=== PATIENT | female | born 1955 ===

== ENCOUNTER → 2017-02-21 | Outpatient (CLI) | payer OTHER | END | disposition home or self-care (01) | LOC: C.PAPS 09:35 | PROVIDERS: ATTEND Physician Assistant | DX: Z12.4 Encounter for screening for malignant neoplasm of cervix (principal) ==

== ENCOUNTER → 2017-03-12 | Outpatient (CLI) | payer OTHER ==
--- NOTE | 2017-03-12 15:08 | MAMMOGRAPHY REPORT ---
BILATERAL DIGITAL SCREENING MAMMOGRAM TOMOSYNTHESIS WITH CAD: 03/12/2017 CLINICAL HISTORY: Routine screening. Patient has no complaints. TECHNIQUE: Breast tomosynthesis in addition to standard 2D mammography was performed. Current study was also evaluated with a Computer Aided Detection (CAD) system. COMPARISON: Comparison is made to exams dated: 08/19/2014 mammogram - [facility]. BREAST COMPOSITION: There are scattered areas of fibroglandular density in both breasts. FINDINGS: There is a 6 mm focal asymmetry versus mass in the 2:00 middle one third of the right gaur[address] st, for which additional targeted ultrasound and possible additional mammographic views are recommend ed, although this could represent a cyst. No other suspicious mass, architectural distortion or cluster of microcalcifications is seen bilatera lly. IMPRESSION: ACR BI-RADS CATEGORY 0: INCOMPLETE EVALUATION: NEED ADDITIONAL IMAGING EVALUATION The 6 mm focal asymmetry versus mass in the 2:00 right breast needs additional evaluation. The patient will be called to schedule an appointment. Approximately 10% of breast cancers are not detected with mammography. A negative mammographic report should not delay biopsy if a clinically suggestive mass is present. Melissa Moctezuma M.D. ay/:03/12/2017 11:48:40 Data Entry Processor: Namita KNIGHT(Petra)([place]), [facility] letter sent: Addl Imaging 0 BI-RADS Code: ACR BI-RADS Category 0: Incomplete Evaluation: Need Additional Imaging Evaluation
== END | disposition home or self-care (01) ==
LOC: C.MAMM 10:21
PROVIDERS: ATTEND Internal Medicine
DX: Z12.31 Encounter for screening mammogram for malignant neoplasm of breast (principal); N64.89 Other specified disorders of breast

== ENCOUNTER → 2017-03-19 | Outpatient (CLI) | payer OTHER ==
--- NOTE | 2017-03-19 15:42 | MAMMOGRAPHY REPORT ---
ULTRASOUND OF RIGHT BREAST: 03/19/2017 CLINICAL HISTORY: 61-year-old woman called back from screening mammography for a 6 mm focal asymmetry in the approximate 2:00 right breast. No family history of breast cancer. Family history of breast cysts. COMPARISON: Comparison is made to exams dated: 03/12/2017 mammogram and 08/19/2014 mammogram - [facility]. FINDINGS: Targeted ultrasound was performed in the 1:00 through 3:00 axes of the right breast to ass ess for the 6 mm focal asymmetry seen on recent screening mammogram. In the right 2:00 axis, 3 cm fr om the nipple, there is a small circumscribed hypoechoic versus anechoic mass measuring 2.8 x 1.9 x 2 .4 mm. No internal vascularity demonstrated. No significant posterior acoustic enhancement or poste rior shadowing. This could represent a complicated cyst or benign solid mass such as a fibroadenoma. In retrospect after re-reviewing the recent screening mammogram, a smaller rounded mass was seen po sterior and slightly inferior to the focal asymmetry in question, measuring 2.6 mm and is sonographic finding likely corresponds with that second mass. In the 1:00 right breast, 3 cm from the nipple, there is a probable microcyst cluster measuring 6.1 x 3.5 x 6.5 mm. This corresponds with the mammographic focal asymmetry/mass and is probably benign. A short interval follow-up right diagnostic tomosynthesis mammogram and repeat targeted ultrasound in the 1:00 and 2:00 axes is recommended to ensure stability of the sonographic findings which most lik tawana represents benign cysts. IMPRESSION: ACR-BI-RADS CATEGORY 3: PROBABLY BENIGN - FOLLOW-UP RECOMMENDED 1. The 6 mm focal asymmetry in the right breast seen on recent screening mammogram is thought to cor respond to a microcyst cluster seen in the 1:00 right breast on targeted ultrasound, which measures 6 .5 mm. A short interval follow-up right diagnostic tomosynthesis mammogram and repeat ultrasound is recommended in 6 months. 2. Incidentally identified on targeted ultrasound of the right breast is a smaller hypoechoic solid versus cystic benign appearing 2.8 mm mass in the 2:00 right breast, 3 cm from the nipple, which in r etrospect corresponds to a second smaller circumscribed 2.6 mm mammographic mass. A six-month follow -up right diagnostic tomosynthesis mammogram and targeted ultrasound is also recommended in the 2:00 axis. These results and recommendations were discussed with the patient at the time of the exam. She tenta tively scheduled a follow-up appointment prior to leaving our department. Melissa Moctezuma M.D. ay/:03/19/2017 11:44:17 Senior It Security Analyst: Dr. Melissa Moctezuma, [facility] letter sent: Follow Up Recommended 3 BI-RADS Code: ACR-BI-RADS Category 3: Probably Benign
== END | disposition home or self-care (01) ==
LOC: C.MAMM 11:14
PROVIDERS: ATTEND Internal Medicine
DX: N64.9 Disorder of breast, unspecified (principal); N63.10 Unspecified lump in the right breast, unspecified quadrant

== ENCOUNTER → 2017-03-19 | Outpatient (CLI) | payer OTHER ==
--- NOTE | 2017-03-19 12:17 | DIAGNOSTIC IMAGING REPORT ---
CHEST 2 VIEWS ROUTINE HISTORY: 61 years-old Female R06.02 Shortness of [id number] acute shortness of breath COMPARISON: None available TECHNIQUE: PA and lateral views of the chest FINDINGS: Cardiomediastinal and hilar silhouettes are within normal limits. Atherosclerosis of the aorta. No pneumothorax, pleural effusion or focal airspace consolidation. Minimal linear subsegmental atelectasis of the lingula. Bones appear grossly intact. IMPRESSION: No acute process. The above report was generated using voice recognition software. It may contain grammatical, syntax or spelling errors. Electronically signed by: Aba Hilario M.D. 03/19/2017 12:16 PM Dictated Date/Time: 03/19/2017 12:14 PM
== END | disposition home or self-care (01) ==
LOC: C.RAD1850 12:03
PROVIDERS: ATTEND Internal Medicine
DX: R06.02 Shortness of breath (principal)